=== PATIENT | male | born 1960 | race Two or more races ===

== ENCOUNTER 2024-12-13 13:23 | Emergency (ER) | payer MEDICAID, SELFPAY ==
[2024-12-13 13:25] VITALS: BMI 29.9
--- NOTE | 2024-12-13 13:36 | EKG_ITS ---
[facility] Test Date: 2024-12-13 Pat Name: MARKUS BRADY Department: Room: - Gender: Male Manager [place]: : 1960 Requested By: ED Temporary Provider Order Number: [id number] Reading MD: ED Temporary Provider Measurements Intervals [place] Rate: 103 P: -3 VT: 101 QRS: 76 QRSD: 90 T: 54 QT: 313 QTc: 412 Interpretive Statements SINUS TACHYCARDIA WITH SHORT VT INTERVAL ABNORMAL RHYTHM ECG No previous ECG available for comparison /[email or web address]/[id number].pdf
[2024-12-13 13:41] VITALS: BP 138/89; PULSE 103; RESP 16; TEMP 36.6; O2SAT 96
--- NOTE | 2024-12-13 13:45 | XR_ITS ---
Examination: PA lateral chest 2 views TECHNIQUE: Upright PA lateral chest 2 views Exam date and time: December 13, 2024 1400 hours INDICATIONS: Acute chest pain today. 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
--- NOTE | 2024-12-13 13:45 | PD.EDRME ---
Rapid Medical Screening Exam RME Arrival date/time: 12/13/24 13:23 64-year-old male with a history of BPH presents to the emergency room with a chief complaint of 8 out of 10 sternal chest pain x 1 day. I have greeted and performed a focused initial assessment of this patient. A comprehensive ED assessment and evaluation of the patient, analysis of all test results, and completion of the medical decision making process will be conducted by additional ED providers. Chief Complaint: Chest Pain Vital signs: Vital Signs Temperature 97.8 F 12/13/24 13:41 Pulse Rate 103 H 12/13/24 13:41 Respiratory Rate 16 12/13/24 13:41 Blood Pressure 138/89 H 12/13/24 13:41 Pulse Oximetry (%) 96 12/13/24 13:41 Oxygen Delivery Method Room Air 12/13/24 13:41 Vital signs reviewed by provider: Yes
[2024-12-13 14:18] LABS: Basophils % (Auto) 1 % (0-2.5); Eosinophils # (Auto) 0.1 Thou/mm3 (0.0-0.5); Eosinophils % (Auto) 2 % (0-10); Hematocrit 42.6 % (41.0-53.0); Hemoglobin 15.2 g/dL (13.5-16.0); Immature Granulocytes % (Auto) 1 % (0-0); Immature Granulocytes Auto 0.05 Thou/mm3 (0.00-0.00); Lymphocytes % (Auto) 23 % (10-50); Mean Corpuscular HGB Conc 35.7 g/dl (31.0-37.0); Mean Corpuscular Volume 87 fL (80-100); Monocytes # (Auto) 0.9 Thou/mm3 (0.0-0.8); Monocytes % (Auto) 10 % (0-12); Neutrophils # (Auto) 5.8 Thou/mm3 (1.8-7.7); Neutrophils % (Auto) 65 % (37-80); Nucleated Red Blood Cell % 0 /100 WBC (0); Platelet Count 208 Thou/mm3 (140-440); RDW Standard Deviation 39.6 fL (35.1-43.9); White Blood Count 8.9 Thou/mm3 (3.8-10.6)
[2024-12-13 14:34] LABS: Partial Thromboplastin Time 29.2 Seconds (22.0-36.0); Prothrombin Time 10.9 Seconds (9.0-12.2)
[2024-12-13 14:35] LABS: B-Type Natriuretic Peptide 29 pg/mL (0-100)
[2024-12-13 14:38] LABS: Alanine Aminotransferase 20 U/L (10-49); Albumin, Serum 4.4 gm/dL (3.4-4.8); Albumin/Globulin Ratio 1.6 (1.2-2.2); Alkaline Phosphatase 126 U/L (46-116); Anion Gap 7 (7-16); Aspartate Amino Transferase 23 U/L (0-34); BUN/Creatinine Ratio 12 Ratio (12-20); Bilirubin,Total 0.4 mg/dL (0.3-1.2); Blood Urea Nitrogen 12 mg/dL (9-23); Calcium 8.7 mg/dL (8.3-10.6); Calcium (Corrected) 8.7 mg/dL (8.5-10.1); Carbon Dioxide 26.6 mMol/L (20.0-31.0); Chloride 102 mMol/L (98-107); Estimated Creatinine Clearance 75.4 mL/min (>60); Globulin 2.8 gm/dL (2.3-3.5); Glucose 98 mg/dL (74-106); Magnesium 2.2 mg/dL (1.6-2.6); Osmolality,Calculated 271 (275-295); Sodium 136 mMol/L (136-145); Total Protein 7.2 gm/dL (5.7-8.2); Troponin I < 0.002 ng/mL (0.0-0.045); eGFR > 60 See Note
--- NOTE | 2024-12-13 17:06 | EDNOTE_ITS ---
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 I have greeted and performed a focused initial assessment of this patient. A comprehensive ED assessment and evaluation of the patient, analysis of all test results, and completion of the medical decision making process will be conducted by additional ED providers. Related Data Home Medications ?Medication ?Instructions ?Recorded ?Confirmed ciprofloxacin HCl 250 mg tablet 11/02/18 (Cipro) gemfibrozil 600 mg tablet (Lopid) 11/02/18 tamsulosin 0.4 mg capsule (Flomax) 11/02/18 Allergies Allergy/AdvReac Type Severity Reaction Status Date / Time No Known Allergies Allergy Verified 11/02/18 11:37 Review of Systems Review of Systems Narrative Review of Systems: GEN: No fever, no chills, no weight loss EYES: No discharge, no visual changes, no pain HEENT: No ear pain, no congestion, no sore throat PULM: No shortness of breath, no cough, no congestion CV: + chest pain, no dyspnea on exertion, no palpitations GI: No nausea, no vomiting, no diarrhea, no pain, no constipation : No frequency, no urgency, no dysuria MUSC/SKEL: No joint pain, no back pain SKIN: No rash PSYCH: No hallucinations, no depression HEME/LYMPH: No easy bleeding or bruising tendencies NEURO: No weakness, no headache Past Medical History Past Medical History NEUROLOGIC: Negative Neurological Disorders or Seizures CARDIAC: Positive Cardiac Disorders and Hypercholesterolemia; Negative Congestive Heart Failure RESPIRATORY: Negative Chronic Obstructive Pulmonary Disease (COPD) GASTROINTESTINAL: Negative Gastrointestinal Disorders GENITOURINARY: Positive Genitourinary Disorders and Benign Prostatic Hyperplasia; Negative Renal Disease MUSCULOSKELETAL: Negative Musculoskeletal Disorders ENDOCRINE: Negative Endocrine Disorders, Diabetes Mellitus Type 1 or Diabetes Mellitus Type 2 HEMATOLOGIC: Negative Blood Disorders OTHER HISTORY: Negative Blood Transfusions, Blood Transfusion Reaction or Anesthesia Reactions Social History SMOKING STATUS: Never smoker ED Exam Narrative Physical exam: [General: Not in any acute distress Head normocephalic HEENT: Within acceptable limits Neck is supple nontender Chest equal chest rise nontender to palpation Respiratory: Clear to auscultation no wheezes crackles or rubs CV: Rate rhythm is regular no murmurs rubs or clicks Abdomen is distended secondary to body habitus soft nontender no masses positive bowel sounds all 4 quadrants Back: No CVA tenderness no spinous process tenderness from cervical spine thoracic and lumbar spine Skin: Intact no petechiae rash induration ulceration or crepitus Extremities: Moving all extremities against resistance cap refill less than 2 seconds neurosensory intact. No lower extremity edema Neuro: Awake alert oriented x3 Glascow coma 15 no focal deficits] Course Quality Measures none Orders Category Date Time Status EKG (ED ONLY) *Do not use* NOW Care 12/13/24 13:37 Completed EKG (ED Only) Stat Exams 12/13/24 13:36 Ordered EKG (ED Only) Urgent Exams 12/13/24 13:36 Draft XR chest 2V Stat Exams 12/13/24 13:45 Completed B-Type Natriuretic Peptide Stat Lab 12/13/24 14:09 Completed CBC Stat Lab 12/13/24 14:09 Completed Comprehensive Metabolic Panel Stat Lab 12/13/24 14:09 Completed Magnesium Stat Lab 12/13/24 14:09 Completed Partial Thromboplastin Time Stat Lab 12/13/24 14:09 Completed Prothrombin Time with INR Stat Lab 12/13/24 14:09 Completed Troponin I Stat Lab 12/13/24 14:09 Completed Troponin I Stat Lab 12/13/24 17:15 Completed Vital Signs Vital signs: Vital Signs Temperature 97.8 F 12/13/24 13:41 Pulse Rate 103 H 12/13/24 13:41 Respiratory Rate 16 12/13/24 13:41 Blood Pressure 138/89 H 12/13/24 13:41 Pulse Oximetry (%) 96 12/13/24 13:41 Oxygen Delivery Method Room Air 12/13/24 13:41 [facility] Patient data External records reviewed:: [facility] previous records Clinical information provided by:: patient Social determinants that could affect healthcare access:: none Patient has the following chronic illnesses:: None How is presenting disease/condition affected by chronic disease/condition?: u neffected by Evaluation data The following diagnostics were reviewed and interpreted by me:: lab results, radiology exam(s) and EKG tracing(s) Lab and/or radiology exams considered but not ordered:: EKG performed at 1339 shows a ventricular rate of 103 CO interval 101 QRS of 9 0 QTc of 373 the sinus tachycardia with short CO interval no acute finding. CBC shows no acute leukocytosis anemia thrombocytopenia CMP shows no acute electrolyte imbalances renal impairment transaminitis or T. bili elevation Coags within acceptable limits Troponin is negative BNP is negative Chest x-ray shows parenchymal scarring in the left upper lobe as interpreted by me read by radiology. Interpretation Summary: Patient has no acute finding requires emergent or immediate intervention. Medications Medications considered but not ordered:: None Medication administrations:: None Consultations Consultation(s) initiated? (list below): No Diagnosis Differential Diagnosis ED Complaint MDM: ACS IN pneumonia chest pain Most likely diagnosis given after review of the tests above:: Chest pain Admission Indicated Admission indicated?: not indicated Explain why admission is indicated or not indicated:: Stable for outpatient follow-up Admission Request Was there a request for admission?: No Disposition Plan Disposition Plan: Discharge Discharge Attestation Discharge Attestation: The patient and all family members were given an opportunity to ask questions and understood the discharge instructions. Discharge instructions specifically effects, indications for sooner follow up or return to the emergency department, and the expected course of current diagnosis. Patient condition: Stable Medical Decision Making Differential Diagnosis Differential Diagnosis: ACS IN pneumonia chest pain Lab Data 12/13/24 14:09 12/13/24 14:09 Labs: Lab Results 12/13/24 12/13/24 Range/Units 14:09 17:15 WBC 8.9 (3.8-10.6) Thou/mm3 RBC 4.90 (4.50-5.90) Miln/mm3 Hgb 15.2 (13.5-16.0) g/dL Hct 42.6 (41.0-53.0) % MCV 87 (80-100) fL MCH 31.0 (25.0-35.0) pg MCHC 35.7 (31.0-37.0) g/dl RDW Std Deviation 39.6 (35.1-43.9) fL Plt Count 208 (140-440) Thou/mm3 Neut % (Auto) 65 (37-80) % Lymph % (Auto) 23 (10-50) % [place] % (Auto) 10 (0-12) % Eos % (Auto) 2 (0-10) % Baso % (Auto) 1 (0-2.5) % Neut # (Auto) 5.8 (1.8-7.7) Thou/mm3 Lymph # (Auto) 2.0 (1.0-4.8) Thou/mm3 [place] # (Auto) 0.9 H (0.0-0.8) Thou/mm3 Eos # (Auto) 0.1 (0.0-0.5) Thou/mm3 Baso # (Auto) 0.0 (0.0-0.2) Thou/mm3 Immature Gran # (Auto) 0.05 H (0.00-0.00) Thou/mm3 Absolute Nucleated RBC 0.00 (0.00-0.00) Thou/mm3 Immature Gran % 1 H (0-0) % Nucleated RBC % 0 (0) /100 WBC PT 10.9 (9.0-12.2) Seconds INR 1.0 (0.9-1.3) APTT 29.2 (22.0-36.0) Seconds Sodium 136 (136-145) mMol/L Potassium 4.0 (3.4-5.1) mMol/L Chloride 102 (98-107) mMol/L Carbon Dioxide 26.6 (20.0-31.0) mMol/L Anion Gap 7 (7-16) BUN 12 (9-23) mg/dL Creatinine 1.0 (0.6-1.3) mg/dL Estim Creat Clear Calc 75.4 (>60) mL/min eGFR > 60 (60 - ) See Note BUN/Creatinine Ratio 12 (12-20) Ratio Glucose 98 (74-106) mg/dL Calculated Osmolality 271 L (275-295) Calcium 8.7 (8.3-10.6) mg/dL Corrected Calcium 8.7 (8.5-10.1) mg/dL Magnesium 2.2 (1.6-2.6) mg/dL Total Bilirubin 0.4 (0.3-1.2) mg/dL AST 23 (0-34) U/L ALT 20 (10-49) U/L Alkaline Phosphatase 126 H (46-116) U/L Troponin I < 0.002 < 0.002 (0.0-0.045) ng/mL B-Natriuretic Peptide 29 (0-100) pg/mL Total Protein 7.2 (5.7-8.2) gm/dL Albumin 4.4 (3.4-4.8) gm/dL Globulin 2.8 (2.3-3.5) gm/dL Albumin/Globulin Ratio 1.6 (1.2-2.2) Discharge Plan Plan Patient Disposition: HOME (Self Care) Patient condition on transfer: Stable Prescriptions/Referrals Prescriptions/Med Rec: No Action ciprofloxacin HCl [Cipro] 250 mg Tablet tamsulosin [Flomax] 0.4 mg Capsule gemfibrozil [Lopid] 600 mg Tablet Referrals: Tomás Contreras MD [Primary Care Provider] - In 1 week Problem List Clinical Impression: Chest pain Patient/Caregiver Discharge Instructions Education Materials: ED Chest Pain, Uncertain Cause Additional Instructions: Follow-up with your primary care provider for further evaluation. Print Language: [place] Stand Alone Forms: [employer] Award Info., Work/School Release, Patient Portal Info Letter PA/ADRY Supervising Physician CONNER/ADRY Supervising Physician: Rao Saul ENP
[2024-12-13 17:48] LABS: Troponin I < 0.002 ng/mL (0.0-0.045)
[2024-12-13 18:05] VITALS: BP 118/78; PULSE 78; O2SAT 99
== END 2024-12-13 18:06 | disposition home or self-care (01) ==
PROVIDERS: Nurse Practitioner Family; Registered Nurse General Practice; Emergency Provider Emergency Medicine; PCP Family Medicine
DX: R07.9 Chest pain, unspecified (principal)
CPT/HCPCS: 36415; 71046; 80053; 81001; 83735; 83880; 84484; 85025; 85610; 85730; 93005; 99283